=== PATIENT | male | born 1970 | race Caucasian/White ===

== ENCOUNTER 2023-10-08 00:26 | Day surgery (SDC) | payer OTHER, SELFPAY ==
[2023-09-28 09:26] VITALS: BMI 29.6
[2023-10-08 08:20] VITALS: BP 128/80; PULSE 100; RESP 16; TEMP 36.5; O2SAT 98
[2023-10-08] MEDS: LACTATED RINGERS 1,000 ML 150 ML IV CONT (08:30)
--- NOTE | 2023-10-08 08:36 | WPDANESEPPF ---
Anes - Initial Pre Proc Eval Procedure: Operation Date: 10/08/23 09:30 Proposed Procedures p Colonoscopy - Kevin Salazar MD Date/Time: 10/08/23 08:36 Surgeon: Kevin Salazar MD Pre Op Diagnosis: Unspecified abdominal pain Patient Data Age: 52 Gender: M Height: 1.75 m Weight: 88.5 kg Last Vital Signs Temp 97.7 F 10/08/23 08:20 Pulse 100 10/08/23 08:20 Resp 16 10/08/23 08:20 BP 128/80 10/08/23 08:20 Pulse Ox 98 10/08/23 08:20 O2 Del Method Room Air 10/08/23 08:20 Allergies Allergy/AdvReac Type Severity Reaction Status Date / Time No Known Allergies Allergy Verified 10/08/23 08:17 Home Medications Medication Instructions Recorded Confirmed Type aspirin 81 mg tablet,delayed 81 mg PO DAILY 05/06/23 10/08/23 History release lisinopril 2.5 mg tablet 2.5 mg PO DAILY 05/06/23 10/08/23 History rosuvastatin 20 mg tablet 20 mg PO DAILY 05/06/23 10/08/23 History clopidogrel 75 mg tablet 75 mg PO DAILY 09/28/23 09/28/23 History Patient hx anesthesia problems: none Family hx anesthesia problems: none Results Review: All pre-operative results and documents have been reviewed as part of the pre-operative evaluation. [facility] Social History Social History Smoking packs per day: 0.5 Smoking cigarettes per day: 10.0 Years smoked: 20 Smoking pack-years: 10.00 Smoking status: Light tobacco smoker Tobacco type: cigarettes Smokeless tobacco user: chewing tobacco Additional smoking assessment comments: CHEWS TOBACCO AND SMOKES DAILY Alcohol intake: never Substance use: never Substance use type: does not use Living arrangements: with family Spiritual care concerns: No Anes - Eval Final PreProcedure Day of Procedure 10/08/23 08:36 Patient weight: overweight Heart: regular rate and rhythm Lungs: clear to auscultation Airway: Mallampati scale class II Neurological: alert and oriented Last oral intake: >/= 8 hours ASA classification: III Emergent: no Anesthetic plan: proceed Anesthesia type and monitoring: general GIVS and standard monitoring Results Review: All pre-operative results and documents have been reviewed as part of the pre-operative evaluation. HTN, Hyperlipidemia, AYAZ recently on CPAP, s/p PTCA x 2 2011 and 2022. Stress test 05/2023 nml, no ischemia, ECHO 05/2023 w LVEF 55%, mod TR. Informed Consent: The patient's anesthetic plan and its attendant risks and benefits were discussed with the patient/family/POA. Questions were solicited and answers provided to the satisfaction of the patient/family/POA.
--- NOTE | 2023-10-08 09:04 | PM.HPGS ---
History of Present Illness History of Present Illness Consent: Risks, benefits, and alternatives have been discussed and questions answered. Patient agrees to proceed with procedure. Chief complaint: Unspecified abdominal pain Narrative: Nikhil Preston is a 52 year old male here for first screening colonoscopy Review of Systems Review of Systems: All systems reviewed & are unremarkable except as noted in HPI and below PMFSH Past Medical History Medical History (Updated 10/08/23 @ 09:05 by Kevin Salazar MD) Colon cancer screening Social History Social History Smoking packs per day: 0.5 Smoking cigarettes per day: 10.0 Years smoked: 20 Smoking pack-years: 10.00 Smoking status: Light tobacco smoker Tobacco type: cigarettes Smokeless tobacco user: chewing tobacco Additional smoking assessment comments: CHEWS TOBACCO AND SMOKES DAILY Alcohol intake: never Substance use: never Substance use type: does not use Living arrangements: with family Spiritual care concerns: No Meds Home Medications and Allergies Home Medications Medication Instructions Recorded Confirmed Type aspirin 81 mg tablet,delayed 81 mg PO DAILY 05/06/23 10/08/23 History release lisinopril 2.5 mg tablet 2.5 mg PO DAILY 05/06/23 10/08/23 History rosuvastatin 20 mg tablet 20 mg PO DAILY 05/06/23 10/08/23 History clopidogrel 75 mg tablet 75 mg PO DAILY 09/28/23 09/28/23 History Allergies Allergy/AdvReac Type Severity Reaction Status Date / Time No Known Allergies Allergy Verified 10/08/23 08:17 Vital Signs Vital Signs - 24 hr 10/08/23 08:20 Temperature 97.7 F Pulse Rate 100 Respiratory Rate 16 Blood Pressure 128/80 Pulse Oximetry 98 Oxygen Delivery Room Air Exam Const: General: comfortable and no acute distress HENMT: Face/Nose/Sinus: Normal nares present Eyes: General: appearance normal, both eyes and all related structures Neck: Neck: no JVD Resp: Auscultation: clear to auscultation bilaterally Cardio: Rate: regular rate Rhythm: regular rhythm GI: Inspection: non-distended GI Palp: Yes Soft to palpation Skin: General skin exam: normal color Neuro: General: gait normal Speech: normal speech Extrem: General: normal to inspection Psych: Mental Status: mental status grossly normal Assessment and Plan Assessment and plan (1) Colon cancer screening: Code(s): Z12.11 - Encounter for screening for malignant neoplasm of colon Status: Acute Assessment and Plan: colonoscopy
[2023-10-08 09:16] VITALS: BP 118/82; PULSE 89; RESP 20; O2SAT 96
[2023-10-08 09:26] VITALS: BP 108/75; PULSE 82; RESP 20; O2SAT 98
[2023-10-08 09:36] VITALS: BP 119/86; PULSE 81; RESP 19; O2SAT 99
== END 2023-10-08 09:44 | disposition home or self-care (01) ==
PROVIDERS: PCP Internal Medicine; Visit Provider Internal Medicine Gastroenterology
PROC: 0DJD8ZZ Inspection of Lower Intestinal Tract, Via Natural or Artificial Opening Endoscopic (ICD-10-PCS; CPT 45378; principal; 2023-10-08 09:30)
DX: Z12.11 Encounter for screening for malignant neoplasm of colon (principal); R10.9 Unspecified abdominal pain; F17.210 Nicotine dependence, cigarettes, uncomplicated
CPT/HCPCS: 45378; J2704; J7120